=== PATIENT | male | born 2005 | race Caucasian/White ===

== ENCOUNTER 2024-08-30 21:57 | Emergency (ER) | payer MEDICAID, SELFPAY ==
[2024-08-30 22:12] VITALS: BP 126/82; PULSE 81; RESP 20; TEMP 37.6; O2SAT 93; BMI 31.8
--- NOTE | 2024-08-30 22:19 | XRR_ITS ---
PROCEDURE INFORMATION: Exam: XR Chest Exam date and time: 08/30/2024 10:23 PM Age: 18 years old Clinical indication: Patient HX: Cough with SOB TECHNIQUE: Imaging protocol: Radiologic exam of the chest. Views: 1 view. COMPARISON: No relevant prior studies available. FINDINGS: Lungs: Unremarkable. No consolidation. Pleural spaces: Unremarkable. No pleural effusion. No pneumothorax. Heart/Mediastinum: Unremarkable. No cardiomegaly. Bones/joints: Unremarkable. XR/XR chest 1V portable [id number] IMPRESSION: No acute findings.
[2024-08-30 23:02] LABS: Influenza A NEGATIVE (Negative); Influenza B NEGATIVE (Negative); Respiratory Syncytial Virus Ce NEGATIVE (Negative)
[2024-08-30 23:04] LABS: Covid PCR Positive (Negative)
--- NOTE | 2024-08-30 23:18 | W.ED.URI ---
HPI - URI/Sore Throat General: Chief Complaint: Upper Respiratory Infection Stated Complaint: Sob headache Time Seen by Provider: 08/30/24 22:18 History of Present Illness: Patient is a 18-year-old male that presents to the emergency department with complaints of respiratory type illness. Headache and shortness of breath with cough. Roommate positive for COVID. Review of Systems General: Reports: 10 or more systems reviewed and unremarkable except in HPI and below Physical Exam Const: COMMON NORMALS: no acute distress, patient oriented x3 and alert GENERAL APPEARANCE: cooperative ORIENTATION/CONSCIOUSNESS: Yes awake, Yes oriented to person, Yes oriented to place and Yes oriented to time HENMT: COMMON NORMALS: normocephalic and atraumatic HEAD & SCALP: normocephalic and atraumatic FACE & SINUS: normal facial exam MOUTH: Normal oral and palatal mucosa present THROAT: posterior oropharynx normal Eye: COMMON NORMALS: Equal, round and reactive pupils present, EOMs intact bilaterally, conjunctivae normal and no scleral icterus GENERAL EYE: appearance normal, both eyes and all related structures ALIGNMENT: Yes alignment normal PERIORBITAL: periorbital findings normal CONJUNCTIVA: Yes conjunctivae normal PUPIL: Yes Equal, round and reactive pupils present Neck/C-Spine: COMMON NORMALS: full ROM GENERAL: Yes normal visual inspection Lymph: LYMPHATIC: no lymphadenopathy noted Chest: COMMONS NORMALS: normal inspection of the chest Breast/axilla inspection: Yes no chest deformity, asymmetry, normal contours, no nodules, masses, tenderness Resp: COMMON NORMALS: normal respiratory effort, No retractions, No use of accessory muscles and clear to auscultation bilaterally EFFORT & INSPECTION: Yes able to speak in complete sentences and Yes symmetric chest movement AUSCULTATION: clear to auscultation bilaterally Cardio: COMMON NORMALS: regular rate, regular rhythm and Peripheral pulses 2+ throughout RATE: regular rate RHYTHM: regular rhythm PERIPHERAL PULSES: Peripheral pulses 2+ throughout GI: COMMON NORMALS: Normal to inspection, nondistended, normoactive bowel sounds present, Soft to palpation, non-tender and No hepatosplenomegaly present INSPECTION: Yes normal to inspection AUSCULTATION: Yes normoactive bowel sounds PALPATION: Yes Soft to palpation and Yes No hepatosplenomegaly present RECTAL EXAM: Yes deferred Extremity: COMMON NORMALS: normal to inspection GENERAL: Yes normal exam except as noted Neuro: COMMON NORMALS: patient oriented x3 SENSORIUM/ORIENTATION: Yes alert, Yes oriented to person, Yes oriented to place and Yes oriented to time CRANIAL NERVES: Yes CN normal except as noted Psych: COMMON NORMALS: mental status grossly normal, Normal thought process present, cooperative, activity/motor behavior normal, denies homicidal ideation and denies suicidal ideation THOUGHT PROCESS: Normal thought process present Skin: COMMON NORMALS: no rashes or lesions noted, no wounds and turgor normal GENERAL SKIN EXAM: no rashes or lesions noted and turgor normal Course Vital Signs: Vital signs: Vital Signs Temperature 99.6 F 08/30/24 22:12 Pulse Rate 81 08/30/24 22:12 Respiratory Rate 20 H 08/30/24 22:12 Blood Pressure 126/82 08/30/24 22:12 Pulse Oximetry 93 08/30/24 22:12 MDM - URI/Sore Throat Medical Decision Making Patient is here for COVID testing. Has a cough, congestion, headache and shortness of breath for the last 2 days. Underwent COVID testing here which was positive. He has been asked by his employer to still come to work even though he is ill. 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 I am advising them to follow CDC guidelines on treatment and quarantine.. Lab Data Laboratory Results Coronavirus (PCR) Positive (Negative) A 08/30/24 22:20 Influenza A (PCR) Negative (Negative) 08/30/24 22:20 Influenza Type B (PCR) Negative (Negative) 08/30/24 22:20 RSV (PCR) Negative (Negative) 08/30/24 22:20 XR interpretation done by ED provider, pending radiology final review Discharge Plan Discharge Patient Disposition: Home Clinical Impression: COVID, Upper respiratory infection, Pharyngitis Condition: Stable Discharge Orders: Discharge ED (Routine); Ordered 08/30/24 Ordered By: Nikolas Obregon Discharge Diet: Advance as tolerated Discharge Activity: Resume usual activity Patient Instructions: Opioid Safety, Pain Management Activity Restrictions/Additional Instructions: Please follow CDC guidelines for management of COVID influenza, RSV and other respiratory viruses. See attachment Increase your fluids and rest. Get plenty good nutrition. Do not go to work while you are sick. COVID and other respiratory viruses will infect others around you. 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
[2024-08-30 23:25] VITALS: BP 128/99; PULSE 73; RESP 14; O2SAT 98
== END 2024-08-30 23:29 | disposition home or self-care (01) ==
PROVIDERS: Emergency Provider Nurse Practitioner
DX: U07.1 COVID-19 (principal); J02.9 Acute pharyngitis, unspecified; Z11.52 Encounter for screening for COVID-19
CPT/HCPCS: 71045; 87637; 99284

== ENCOUNTER → 2025-04-12 17:26 | Outpatient (BNVA) | payer MEDICAID, SELFPAY | PROVIDERS: Visit Provider Emergency Medicine | DX: Z20.2 Contact with and (suspected) exposure to infections with a predominantly sexual mode of transmission (principal) | CPT/HCPCS: 87491; 87591; 87661 ==

== ENCOUNTER 2025-05-27 12:33 | Emergency (ER) | payer MEDICAID, SELFPAY ==
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
[2025-05-27 12:35] VITALS: BP 129/85; PULSE 87; TEMP 36.7; O2SAT 98; BMI 27.4
--- NOTE | 2025-05-27 12:40 | XR_ITS ---
WS: [id number] Exam: XR hand LT min 3V* [id number] Date/Time of Exam: 05/27/2025 12:40 PM Reason For Exam: trauma DLP: There is a displaced oblique fracture at the proximal end of the fourth metacarpal. There also appears to be dorsal dislocation of the base of the fifth metacarpal. No other acute fractures. Soft tissue swelling over the dorsum of the hand. 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 Recommendations: Consider CT for more detailed evaluation. XR/XR hand LT min 3V* [id number] IMPRESSION: 1. Displaced angulated fracture of the proximal end of the fourth metacarpal. 2. Probable dislocation of the base of the fifth metacarpal. Soft tissue domoi ng.
--- NOTE | 2025-05-27 13:01 | W.ED.EXTPRO ---
HPI - Extremity Problem General: Chief complaint: Extremity Injury, Upper Stated complaint: left hand pain Time Seen by Provider: 05/27/25 12:40 History of Present Illness: 19-year-old male who presents emergency room with left hand pain. He says he got angry and punched a wall. This happened this morning. He has quite a bit of swelling at the base of his fourth and fifth metacarpal. Neurovascularly intact. Related Data Home Medications ?Medication ?Instructions ?Recorded ?Confirmed fluticasone propionate 50 1 spray intranasal BID PRN 05/27/25 05/27/25 mcg/actuation nasal allergies spray,suspension Previous Rx's ?Medication ?Instructions ?Recorded albuterol sulfate 90 mcg/actuation 2 inh inhalation Q4H PRN shortness 03/27/25 aerosol inhaler (Ventolin HFA) of breath or wheezing #8.5 grams hydrocodone 5 mg-acetaminophen 325 1 tab PO Q6H PRN pain #20 tabs 05/27/25 mg tablet polyethylene glycol 3350 17 17 g PO DAILY #510 grams 05/27/25 gram/dose oral powder (Miralax) Allergies Allergy/AdvReac Type Severity Reaction Status Date / Time No Known Allergies Allergy Verified 05/27/25 12:39 Review of Systems Narrative: Constitutional symptoms: Negative except as documented in HPI. Skin symptoms: Negative except as documented in HPI. Eye symptoms: Negative except as documented in HPI. ENMT symptoms: Negative except as documented in HPI. Respiratory symptoms: Negative except as documented in HPI. Cardiovascular symptoms: Negative except as documented in HPI. Gastrointestinal symptoms: Negative except as documented in HPI. Genitourinary symptoms: Negative except as documented in HPI. Musculoskeletal symptoms: Negative except as documented in HPI. Neurologic symptoms: Negative except as documented in HPI. Psychiatric symptoms: Negative except as documented in HPI. Endocrine symptoms: Negative except as documented in HPI. PFSH ED PFSH: Social History Smoking and tobacco/nicotine status: never used tobacco/nicotine Physical Exam Narrative: EXAM NARRATIVE: General: Alert, no acute distress. Skin: Warm, dry. Head: Normocephalic, atraumatic. Neck: Supple, trachea midline. Eye: Extraocular movements are intact. Ears, nose, mouth and throat: mucosa moist. Cardiovascular: Regular, Normal peripheral perfusion. Respiratory: Lungs are clear to auscultation, respirations are non-labored, breath sounds are equal, Symmetrical chest wall expansion. Gastrointestinal: Soft, Nontender, Non distended Musculoskeletal: Swelling and possible deformity at the base of the hand/4th and 5th metacarpal dorsally. Neurovascularly intact Neurological: Alert and oriented, No focal neurological deficit observed. Psychiatric: Cooperative, appropriate mood & affect. Course Vital Signs: Vital signs: Vital Signs Temperature 98.0 F 05/27/25 12:35 Pulse Rate 83 05/27/25 14:30 Blood Pressure 129/73 05/27/25 14:30 Pulse Oximetry 94 05/27/25 14:30 Oxygen Delivery Me thod Room Air 05/27/25 12:35 MDM - Extremity (Nontraumatic) Medical Decision Making Medical decision making: Differential diagnosis including but not limited to and based on the above HPI, review of systems and physical exam: In this patient with a musculoskeletal extremity traumatic injury and x-ray is being ordered to rule out fractures and dislocations. Orders placed to evaluate differential diagnosis based on the above differential, HPI and physical exam X-ray of the left hand: Displaced angulated fracture of the proximal end of the fourth metacarpal. Probable dislocation at the base of the fifth metacarpal Consultation: I spoke with Dr. Dodson who is on-call for orthopedics. He recommends a CT scan, ulnar gutter splint and follow-up in clinic tomorrow for probable surgery on Sunday. CT of the right hand shows comminuted oblique fracture involving the base of the fourth metacarpal and dorsal and ulnar displacement of the distal fragment. Dorsal dislocation of the fifth metacarpal at the CMC joint I reviewed the patient's medical record. Reexamination: Splint was placed by nursing. I have examined personally. He is neurovascularly intact. No increased work of breathing. No altered mental status. We discussed findings and he will see Dr. Dodson in clinic tomorrow at 830 Assessment and plan: Fourth metacarpal fracture Fifth metacarpal dislocation ?Splint placed. Pain meds called in. Appointment scheduled. - Discharged home - Discussed plan with patient. Answered any questions. - Evaluation and treatment of this problem were appropriate in the emergency setting. Lab Data Radiology Impressions Hand X-Ray 05/27/25 12:40 IMPRESSION: 1. Displaced angulated fracture of the proximal end of the fourth metacarpal. 2. Probable dislocation of the base of the fifth metacarpal. Soft tissue swelling. Hand CT 05/27/25 13:08 IMPRESSION: 1. Comminuted oblique fracture involving the base of the fourth metacarpal with dorsal and ulnar displacement of the distal fragment. 2. Dorsal dislocation of the fifth metacarpal at the CMC joint. 3. A few tiny fracture fragments at the base of the fourth and fifth metacarpals. 4. Additional tiny fracture fragment at the base of the second metacarpal age-indeterminate. 5. Tiny fracture fragments at the base of the third metacarpal also age-indeterminate. All radiology interpretation(s) finalized by discharge Discharge Plan Discharge Patient Disposition: Home Clinical Impression: Closed fracture of fourth metacarpal bone Condition: Stable Prescriptions: New hydrocodone-acetaminophen 5-325 mg tablet 1 tab PO Q6H PRN (Reason: pain) Qty: 20 0RF polyethylene glycol 3350 [Miralax] 17 gram/dose powder 17 g PO DAILY Qty: 510 0RF Rx Instructions: Take 1-2 scoop daily while taking pain medications. No Action albuterol sulfate [Ventolin HFA] 90 mcg/actuation HFA aerosol inhaler 2 inh inhalation Q4H PRN (Reason: shortness of breath or wheezing) Qty: 8.5 0RF fluticasone propionate 50 mcg/actuation spray,suspension 1 spray intranasal BID PRN (Reason: allergies) Rx Instructions: administer into each nostril Discharge Orders: Discharge ED (Routine); Ordered 05/27/25 Ordered By: Kami Benitez Referrals: Michael Dodson DO [Physician, Orthopedics] - 05/28/25 8:30 am Referral Note: Please show up to clinic about 15 to 20 minutes early. Discharge Activity: Limit activity as instructed Patient Instructions: Splint Care (ED), Opioid Safety, Pain Management, Patient Portal & Mahad Instructions Activity Restrictions/Additional Instructions: Thank you for choosing [facility] for your healthcare needs today. You have been screened and evaluated and felt safe for discharge. Health conditions do change or evolve sometimes and as such it is important that you follow up with your Primary Doctor to be re checked, 3-5 days is a general good time frame for follow up. 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
--- NOTE | 2025-05-27 13:08 | CT_ITS ---
WS: [id number] Noncontrast CT LEFT hand TECHNIQUE: Noncontrast CT LEFT hand with coronal and sagittal reformatted images. CLINICAL INFORMATION: Possible dislocation and fracture DLP: 126.[address] scans at [facility] use at least one of these dose optimization techniques: automated exposure control; mA and/or kV adjustment per patient size (includes targeted exams where dose is matched to clinical indication); or iterative reconstruction. FINDINGS: Soft tissue edema overlying the ulnar and dorsal surface of the hand. Comminuted fractures involving the proximal fourth metacarpal with dorsal apex angulation of the fracture. Tiny fracture fragments at the base of the fourth and fifth metacarpals. Dorsal dislocation involving the fifth metacarpal base with associated tiny fracture fragments. Additional tiny fracture fragments at the base of the second and third metacarpals age-indeterminate. Prior amputation index finger at the level of the middle phalanx. Normal scaphoid and lunate. Normal DRUJ. Distal radius appears normal. Normal scapholunate interval. No other acute findings. CT/CT hand LT wo con* [id number] IMPRESSION: 1. Comminuted oblique fracture involving the base of the fourth metacarpal wit h dorsal and ulnar displacement of the distal fragment. 2. Dorsal dislocation of the fifth metacarpal at the CMC joint. 3. A few tiny fracture fragments at the base of the fourth and fifth metacarpa ls. 4. Additional tiny fracture fragment at the base of the second metacarpal age- indeterminate. 5. Tiny fracture fragments at the base of the third metacarpal also age-indete rminate.
--- NOTE | 2025-05-27 14:27 | DCPLANNER ---
Per Dr Benitez- Dr vaughn to do surgery sunday- would like patient to be seen tomorrow morning in office- Scheduled for 0830 am
[2025-05-27 14:30] VITALS: BP 129/73; PULSE 83; O2SAT 94
== END 2025-05-27 14:31 | disposition home or self-care (01) ==
PROVIDERS: Emergency Provider Emergency Medicine
DX: S62.315A Displaced fracture of base of fourth metacarpal bone, left hand, initial encounter for closed fracture (principal); W22.09XA Striking against other stationary object, initial encounter
CPT/HCPCS: 73130; 73200; 99284

== ENCOUNTER → 2025-05-28 09:00 | Outpatient (BNVA) | payer MEDICAID, SELFPAY | PROVIDERS: Visit Provider Orthopaedic Surgery | DX: S62.395A Other fracture of fourth metacarpal bone, left hand, initial encounter for closed fracture (principal); S63.065A Dislocation of metacarpal (bone), proximal end of left hand, initial encounter; Z01.818 Encounter for other preprocedural examination; W22.09XA Striking against other stationary object, initial encounter; Z09 Encounter for follow-up examination after completed treatment for conditions other than malignant neoplasm | CPT/HCPCS: 36415; 73130; 80053; 81001; 85025; 87491; 87591; 87661 ==

== ENCOUNTER 2025-05-29 05:07 | Day surgery (SDC) | payer MEDICAID, SELFPAY ==
[2025-05-29] VITALS (11 sets, daily range): BP systolic 123–152; BP diastolic 79–107; PULSE 73–103; RESP 10–24; TEMP 36.3–37.1; O2SAT 95–99; BMI 28.0
--- NOTE | 2025-05-29 12:26 | W.PM.OPSUD ---
Surgery/Procedure H&P Update DATE OF PROCEDURE: May 29, 2025 DATE H&P PERFORMED: 05/28/25 H&P UPDATE INFORMATION: I have reviewed H&P completed within last 30 days, I have examined patient prior to procedure and No changes to prior documentation PLANNED PROCEDURE: Operation Date: 05/29/25 12:45 Proposed Procedures p Closed Reduction Finger(Left) - Michael Dodson DO
--- NOTE | 2025-05-29 13:25 | PM.OP ---
Operative Report Date of procedure: May 29, 2025 Pre-op diagnosis: 1. Fifth metacarpal carpal dislocation 2. Fourth metacarpal fracture shaft Surgeon: Michael Dodson DO Estimated blood loss (mL): 5 Procedure: 1. Fifth metacarpal carpal dislocation 2. Fourth metacarpal fracture shaft Patient is brought to the operative suite after undergoing anesthesia patient was placed in the supine position. All areas of impingement were well-padded. Attention was first brought to the fifth metacarpal carpal dislocation. The metacarpal was palpated and reduced felt it pop into place. This confirmed under C-arm guidance. The shaft fracture was then reduced. The K wires were then placed from the fifth metacarpal through the carpal proximally. And into the cuneiform. Then a K wire was placed across the bases of the metacarpals from the fifth metacarpal into the fourth metacarpal and into the third metacarpal and then the K wire was then placed from the fifth metacarpal shaft distal to the fracture in the fourth metacarpal. And then into the third metacarpal. AP lateral and confirmed that the fractures and the hardware are in good position. Wounds irrigated dressings were applied patient was then placed in a ulnar gutter splint and transferred the PACU in stable addition.
[2025-05-29] MEDS: fentaNYL 50 mcg/mL INJ 2mL IVP (13:44)
[2025-05-29] MEDS: HYDROcodone-acetaminophen 5-325 mg Tablet 1 TAB PO (14:22)
--- NOTE | 2025-05-29 14:26 | ANE.PACU2 ---
Inpatient post-anesthesia follow up: Airway intact: Yes Vital signs: Temperature 97.3 F Pulse Rate 73 Respiratory Rate 18 Blood Pressure 150/97 Pulse Oximetry 97 Oxygen Delivery Me thod Room Air Oxygen Flow Rate Fraction of Inspir ed Oxygen Hydration adequate: Yes Nausea and vomiting: No Pain level: 1 Mental status: Baseline
--- NOTE | 2025-05-29 14:36 | XR_ITS ---
WS: [id number] Exam: XR hand LT 2V [id number] Date/Time of Exam: 05/29/2025 2:36 PM Reason For Exam: OR PICS DLP: AP and lateral intraoperative images of the LEFT hand are submitted. Images obtained for intraoperative visualization purposes.
--- NOTE | 2025-06-11 15:40 | PM.PN ---
Subjective Subjective: Patient is 2-week status post closed duction. Vitals/I&O/Wt Last Vital Signs Temp 97.3 F L 05/29/25 14:10 Pulse 73 05/29/25 14:10 Resp 18 05/29/25 14:10 BP 150/97 05/29/25 14:10 Pulse Ox 97 05/29/25 14:10 O2 Del Method Room Air 05/29/25 14:10 A&P Assessment and plan 1. Encounter for postoperative care: Patient has 2-week status post closed reduction previous pinning of his hand. PDMP PDMP Reviewed: Last Reviewed 05/29/25 14:23 EDT by Michael Dodson DO Coding Level of Care Code Acute Code for Chg Fwd Diagnoses Encounter for postoperative care Z48.89
== END 2025-05-29 14:26 | disposition home or self-care (01) ==
PROVIDERS: Visit Provider Orthopaedic Surgery
PROC: (CPT 26676; principal; 2025-05-29 12:35)
DX: S62.328A Displaced fracture of shaft of other metacarpal bone, initial encounter for closed fracture (principal); S63.06 Subluxation and dislocation of metacarpal (bone), proximal end; W22.09XA Striking against other stationary object, initial encounter; Z79.891 Long term (current) use of opiate analgesic
CPT/HCPCS: 26676; 26727; 73120; 76000; C1713; J0330; J1100; J1885; J2250; J2405; J2704; J3010; J7030; J9999

== ENCOUNTER 2025-06-03 05:00 | Outpatient (CLI) | payer MEDICAID, SELFPAY | END 2025-06-03 05:01 | disposition home or self-care (01) | LOC: SPT 06-29 08:17 | PROVIDERS: Visit Provider Orthopaedic Surgery | DX: Z47.89 Encounter for other orthopedic aftercare (principal); Z98.890 Other specified postprocedural states | CPT/HCPCS: L3984 ==

== ENCOUNTER → 2025-06-11 14:42 | Outpatient (BNVA) | payer MEDICAID, SELFPAY | PROVIDERS: Visit Provider Orthopaedic Surgery | DX: Z98.890 Other specified postprocedural states (principal); Z46.89 Encounter for fitting and adjustment of other specified devices | CPT/HCPCS: 73130 ==

== ENCOUNTER → 2025-06-30 15:00 | Outpatient (BNVA) | payer MEDICAID, SELFPAY | PROVIDERS: Visit Provider Orthopaedic Surgery | DX: Z98.890 Other specified postprocedural states (principal); Z48.89 Encounter for other specified surgical aftercare | CPT/HCPCS: 73130 ==

== ENCOUNTER → 2025-07-16 15:28 | Outpatient (BNVA) | payer MEDICAID, SELFPAY | PROVIDERS: Visit Provider Orthopaedic Surgery | DX: Z98.890 Other specified postprocedural states (principal); Z48.89 Encounter for other specified surgical aftercare | CPT/HCPCS: 73130 ==